=== PATIENT | female | born 1990 | race African-American/Black ===

== ENCOUNTER 2023-04-01 13:35 | Inpatient (IN) | payer BC, OTHER ==
[~2023-04-01] VITALS: Ht 170.2 cm; Wt 95.3 kg
--- NOTE | 2023-04-01 14:05 | NUR ---
Patient to room #3 with family, informed of plan of care awaiting ER provider exam. Provided urine specimen cup for urine collection, no s/s of any distress noted will continue to monitor.
--- NOTE | 2023-04-01 14:22 | NUR ---
ER provider at bedside for exam.
[2023-04-01] MEDS ORDERED: MORPHINE SULFATE 2 MG/1 ML DISP.SYRIN IM ONE (14:30)
[2023-04-01] MEDS ORDERED: MORPHINE SULFATE 4 MG/1 ML DISP.SYRIN ONE (14:31)
[2023-04-01] MEDS ORDERED: MORPHINE SULFATE 2 MG/1 ML DISP.SYRIN ONE (14:31)
--- NOTE | 2023-04-01 14:37 | NUR ---
Medicated as per order.
[2023-04-01 14:46] LABS: *URINE HCG, QUAL NEGATIVE (NEGATIVE)
[2023-04-01] MEDS ORDERED: HYDROMORPHONE 1 MG/1 ML DISP.SYRIN IV ONE (15:45)
[2023-04-01] MEDS ORDERED: HYDROMORPHONE 1 MG/1 ML DISP.SYRIN ONE (15:51)
[2023-04-01 15:53] LABS: HEMATOCRIT 41.7 % (31.2-41.9); MEAN CORPUSCULAR HEMOGLOBIN 26.7 uug (24.7-32.8); MEAN CORPUSCULAR VOLUME 82.9 fL (75.5-95.3); PLATELET COUNT (AUTO) 232 K/uL (179-408)
--- NOTE | 2023-04-01 15:56 | NUR ---
Patient aware will be admitted to the hospital.
--- NOTE | 2023-04-01 16:00 | NUR ---
[facility] called at this time.
[2023-04-01 16:08] LABS: CREATININE 1.1 mg/dL (0.6-1.3); POTASSIUM 4.1 mmol/L (3.5-5.1)
[2023-04-01] MEDS ORDERED: ONDANSETRON 4 MG/2 ML VIAL IV PRN (16:30)
[2023-04-01] MEDS ORDERED: REMEDY ESSENTIAL ZINC PASTE 113 GM TP PRN (16:30)
[2023-04-01] MEDS ORDERED: MAGNESIUM HYDROXIDE 30 ML LIQUID UDC PO PRN (16:30)
[2023-04-01] MEDS ORDERED: MORPHINE SULFATE 2 MG/1 ML DISP.SYRIN IV PRN (16:30)
[2023-04-01] MEDS ORDERED: ACETAMINOPHEN 325 MG TABLET PO PRN (16:30)
[2023-04-01] MEDS ORDERED: HYDROCODONE/APAP 10-325 MG TABLET PO PRN (16:30)
--- NOTE | 2023-04-01 16:49 | NUR ---
Knee immobilizer was applied as per order.Belongings list done at this time, informed of room #304
--- NOTE | 2023-04-01 17:23 | NUR ---
Report has been given, patient remains stable for transport to unit.
[2023-04-01 18:03] VITALS: BP 140/79; TEMP 98.4; O2SAT 98
--- NOTE | 2023-04-01 18:11 | NUR ---
33 YEAR OLD FEMALE RECEIVED TO ROOM 304,PT IS AXOX4,CALL LIGHT WITH IN REACH VS ARE STABLE ADMISSION ORDERS RECEIVED NOTED AND CARRIED OUT
[2023-04-01 20:00] VITALS: BP 125/78; TEMP 98.3; O2SAT 96
--- NOTE | 2023-04-01 20:53 | NUR ---
AOX4. ABLE TO VERBALIZE NEEDS. HAS AN IMMOBILIZER ON LEFT LOWER LEG. IV SITE ON LEFT AC 20G INTACT AND PATENT. PT WAS NAUSEOUS, HAD EMESISX1. ADMINISTERED ZOFRAN ORDERED. PT COMPLAINING OF PAIN WITH 7/10 ON PAIN SCALE. ICE PACK PROVIDED. ADMINISTERED NORCO ORDERED. WILL CONTINUE TO MONITOR.
[2023-04-01] MEDS: MORPHINE SULFATE 4 MG/1 ML DISP.SYRIN IV PRN (22:57)
[2023-04-02 04:00] VITALS: BP 112/59; TEMP 97.9; O2SAT 97
[2023-04-02] MEDS: MORPHINE SULFATE 4 MG/1 ML DISP.SYRIN IV PRN ×4 (04:02→22:37)
--- NOTE | 2023-04-02 06:34 | NUR ---
CXR AND EKG DONE AT BEDSIDE. PT MAINTAINED NPO SINCE 9PM. AT BEDSIDE. PRE OPERATIVE CHECKLIST DONE. PT PICKED UP BY OR NURSES.
[2023-04-02 06:36] LABS: HEMATOCRIT 38.5 % (31.2-41.9); MEAN CORPUSCULAR HEMOGLOBIN 27.2 uug (24.7-32.8); MEAN CORPUSCULAR VOLUME 82.7 fL (75.5-95.3); PLATELET COUNT (AUTO) 213 K/uL (179-408)
[2023-04-02] MEDS ORDERED: VANCOMYCIN 1000 MG VIAL ONE (06:42)
[2023-04-02] MEDS ORDERED: MIDAZOLAM HCL 10 MG/2 ML VIAL ONE (06:47)
[2023-04-02] MEDS ORDERED: FENTANYL CITRATE 100 MCG/2 ML AMPUL ONE (06:47)
[2023-04-02] MEDS ORDERED: FAMOTIDINE. 20 MG/2 ML VIAL IV ONE (06:48)
[2023-04-02] MEDS ORDERED: BUPIVACAINE 0.25% 30 ML VIAL ONE (06:48)
[2023-04-02] MEDS ORDERED: KETAMINE HCL 200 MG/20 ML VIAL ONE (06:48)
[2023-04-02] MEDS ORDERED: ESMOLOL HCL 100 MG/10 ML VIAL IV ONE (07:00)
[2023-04-02] MEDS ORDERED: KETOROLAC TROMETHAMINE 30 MG INJ ONE (07:00)
[2023-04-02] MEDS ORDERED: GLYCOPYRROLATE 0.2 MG/ML VIAL ONE (07:00)
[2023-04-02] MEDS ORDERED: PROPOFOL 200 MG/20 ML BOTTLE ONE ×2 (07:00)
[2023-04-02] MEDS ORDERED: ONDANSETRON 4 MG/2 ML VIAL ONE (07:00)
[2023-04-02] MEDS ORDERED: CEFAZOLIN 1 G VIAL ONE ×2 (07:00)
[2023-04-02] MEDS ORDERED: LIDOCAINE-MPF 2% 5 ML VIAL ONE ×3 (07:00)
[2023-04-02] MEDS ORDERED: METOCLOPRAMIDE HCL 10 MG/2 ML VIAL ONE (07:00)
[2023-04-02] MEDS ORDERED: DEXAMETHASONE SOD PHOSPHATE 4 MG INJ ONE (07:00)
[2023-04-02 07:13] LABS: CREATININE 0.9 mg/dL (0.6-1.3); MAGNESIUM 2.1 mg/dL (1.8-2.4); POTASSIUM 3.7 mmol/L (3.5-5.1)
--- NOTE | 2023-04-02 07:30 | NUR ---
Pt not on floor. Pt is down stairs at surgery.
[2023-04-02] MEDS ORDERED: HYDROMORPHONE 1 MG/1 ML DISP.SYRIN ONE (09:53)
--- NOTE | 2023-04-02 11:00 | NUR ---
Pt awake alert and oriented. PT denies any c/o pain. IVF infusing as ordered no s/s of infiltration. . Pt able to wiggle toes on left feet and feel sensation on toes. Left knee immobilizer on and left leg elevated. Applied ice on left knee. Call light is within reach.
[2023-04-02 11:39] VITALS: BP 134/83; TEMP 99.2; O2SAT 100
[2023-04-02 12:01] VITALS: BP 134/82; TEMP 99.2; O2SAT 100
[2023-04-02 12:52] VITALS: BP 132/82; TEMP 99.2; O2SAT 99
--- NOTE | 2023-04-02 14:15 | NUR ---
Pt more awake and alert. Discussed proper pain management with patient. Discussed Incentive Spirometer - pt able to properly return demonstrate use of IS. Pt verbalized understanding.
[2023-04-02] MEDS ORDERED: SCOPOLAMINE PATCH 1 MG/72 HRS PATCH TD ONE (14:45)
[2023-04-02] MEDS: IV D5W-0.45% NS +20 KCL 1,000 ML IV PRN (14:50)
[2023-04-02] MEDS: CEFAZOLIN 1 G in IV DEXTROSE 5% 50 ML IV SCH ×2 (14:53→22:44)
[2023-04-02 15:20] VITALS: BP 115/54; TEMP 98.6; O2SAT 98
[2023-04-02] MEDS ORDERED: POLYVINYL ALCOHOL OPHT DROPS 15 ML BOTTLE EACHEYE PRN (15:30)
--- NOTE | 2023-04-02 18:07 | NUR ---
PT is in no acute distress. Pt's pain managed with Morphine - discussed side effect of morphine and to encourage fiber intake to counterbalance constipation. No c/o n/v noted.
[2023-04-03] MEDS: MORPHINE SULFATE 4 MG/1 ML DISP.SYRIN IV PRN ×5 (02:25→14:48)
--- NOTE | 2023-04-03 02:25 | NUR ---
patient called and verbalized pain to her left knee ( post op site )8 over 10.post op site dressing CDI , GOOD CMS no s/s of bleeding able to moved toes prn pain medication given morphine see emar.
[2023-04-03] MEDS: IV D5W-0.45% NS +20 KCL 1,000 ML IV PRN ×2 (04:27→22:41)
--- NOTE | 2023-04-03 06:38 | NUR ---
pain medication given q request see emar .
--- NOTE | 2023-04-03 06:52 | NUR ---
ice packs applied to the right knee checked position of the knee immobilizer in placed .right leg elevated with pillow .
--- NOTE | 2023-04-03 07:40 | NUR ---
RECEIVED PATIENT IN BED AWAKE ALERT AND ORIENTED ON ROOM AIR WITH NO SOB AT THIS TIME IVF IN PROGRESS VIA RIGHT ANTECUBITAL WITH NO S/S OF INFILTERATION AT THIS TIME.LEFT LOWER EXT WITH IMMOBILIZER AND SURGICAL DRESSING INTACT WITH ICE PACK APPLICATION AND SHE STATED THAT SHE RECEIVED PAIN MEDICATIONS ABOUT ONE AND HALF HOUR AGO SHE IS FOR PHYSICAL THERAPY EVAL WITH [facility] THIS AM CALL LIGHT AND PERSONAL BELONGINGS ARE WITHIN EASY REACH WILL CONTINUE TO OBSERVE
--- NOTE | 2023-04-03 10:24 | NUR ---
PATIENT SEEN AND EXAMINED BY [facility] [employer] WITH NEW ORDERS AND NOTED.
[2023-04-03] MEDS: DOCUSATE SODIUM 100 MG CAPSULE PO SCH ×2 (11:49→21:11)
[2023-04-03] MEDS: HYDROCODONE/APAP 10-325 MG TABLET PO PRN ×3 (11:49→22:35)
[2023-04-03 12:00] VITALS: BP 128/80; TEMP 97.9; O2SAT 99
[2023-04-03 16:00] VITALS: BP 131/71; TEMP 98.4; O2SAT 99
--- NOTE | 2023-04-03 18:00 | NUR ---
PATIENT WAS SEEN BY THE PHYSICAL THERAPY FOR AMBULATION WITH THE FRONT WHEEL WALKER WITH NON WEIGHT BEARING LEFT LOWER EXT ENDURANCE IS FAIR PER THE THERAPIST WILL PRACTICE STAIRS TOMORROW PATIENT HAS STAIRS TO ENTER HER HOUSE.REMAIN ON PAIN MANAGEMENT ORDERED AND HELPFUL LEFT KNEE WITH DRESSING INTACT WITH IMMOBILIZER ICE PARK IS IN USE WILL CONTINUE TO OBSERVE
--- NOTE | 2023-04-03 20:00 | NUR ---
Received patient awake alert, complain of pain on left knee surgery during moving, bedside commode provided, assisted patient to the toilet, mother at bedside also, instructed patient no weight bearing on left knee, she need to use the clutches instead, patient tolerate well, no bowel movement yet, cont on pain management, ice pack in place, cont to monitor.
[2023-04-03 22:24] VITALS: BP 139/83; TEMP 99.8; O2SAT 99
[2023-04-04] MEDS: HYDROCODONE/APAP 10-325 MG TABLET PO PRN ×4 (02:45→16:21)
--- NOTE | 2023-04-04 05:31 | NUR ---
Patient asleep but arousable, cont on pain management s/p left tibial orif, dressing intact, leg immobilizer in place, kept elevated with pillow, toes color wnl, skin temp wnl. no bowel movement yet, low grade temp 99.8, patient complain of left inner knee pain, reposition left leg, lower hob few degrees which help the pain. Narco pain meds effective at this time, will cont to monitor. temp.
[2023-04-04 07:17] LABS: HEMATOCRIT 34.4 % (31.2-41.9); MEAN CORPUSCULAR HEMOGLOBIN 26.8 uug (24.7-32.8); MEAN CORPUSCULAR VOLUME 83.3 fL (75.5-95.3); PLATELET COUNT (AUTO) 188 K/uL (179-408)
[2023-04-04 07:27] LABS: CREATININE 0.9 mg/dL (0.6-1.3); POTASSIUM 3.9 mmol/L (3.5-5.1)
--- NOTE | 2023-04-04 07:30 | NUR ---
Patient awake during rounds. She describes her pain at 7/10. IV infusing. Left lower leg with knee immobilizer, skin checked, original surgical dressing in place, clean and dry.
[2023-04-04] MEDS: DOCUSATE SODIUM 100 MG CAPSULE PO SCH (09:08)
[2023-04-04] MEDS: MORPHINE SULFATE 4 MG/1 ML DISP.SYRIN IV PRN (09:10)
[2023-04-04] MEDS ORDERED: MAGNESIUM HYDROXIDE 30 ML LIQUID UDC PO ONE (10:45)
[2023-04-04] MEDS ORDERED: DOCU-141 PO ×2 (10:56→11:05)
[2023-04-04] MEDS ORDERED: HYDR-3980 PO ×2 (10:56→11:05)
[2023-04-04 11:16] VITALS: BP 144/89; TEMP 98; O2SAT 100
--- NOTE | 2023-04-04 12:30 | NUR ---
Patient still hasn't had BM and requested for suppository, [facility] provider notified, order obtained and suppository given.
[2023-04-04] MEDS ORDERED: BISACODYL 10 MG SUPP.RECT RC ONE (13:15)
--- NOTE | 2023-04-04 15:28 | NUR ---
Patient had BM and expressed desire to go home. Case Management contacted for follow up re: home health and was told CM still working on it and says patient can be discharged home.
[2023-04-04 16:32] VITALS: BP 133/73; TEMP 97.8; O2SAT 100
== END 2023-04-04 16:55 | disposition home health service (06) | DRG 494 ==
LOC: ER 13:40 → MEDSURG3 17:30
PROVIDERS: ADMIT Nurse Practitioner Acute Care; ATTEND Nurse Practitioner Acute Care
PROC: 0QSH04Z Reposition Left Tibia with Internal Fixation Device, Open Approach (ICD-10-PCS; principal; 2023-04-02)
PROC: 05H533Z Insertion of Infusion Device into Right Subclavian Vein, Percutaneous Approach (ICD-10-PCS; 2023-04-03)
PROC: B546ZZA Ultrasonography of Right Subclavian Vein, Guidance (ICD-10-PCS; 2023-04-03)
DX: S82.142A Displaced bicondylar fracture of left tibia, initial encounter for closed fracture (principal); X50.0XXA Overexertion from strenuous movement or load, initial encounter; Y93.64 Activity, baseball; Y92.320 Baseball field as the place of occurrence of the external cause; Y99.8 Other external cause status; E66.9 Obesity, unspecified; Z68.32 Body mass index [BMI] 32.0-32.9, adult; Z71.3 Dietary counseling and surveillance; R52 Pain, unspecified
CPT/HCPCS: 36415; 71045; 73590; 83735; 84100; 84703; 85025; 85730; 86850; 86900; 86901; 93005; A4649; A4663; C1713; G0378; J0690; J1100; J1170; J1885; J2250; J2270; J2405; J2765; J3010; J3370; J3490